=== PATIENT | female | born 1995 ===

== ENCOUNTER 2017-09-08 19:22 | Outpatient (CLI) | payer SELFPAY | END 2017-09-08 19:23 | disposition EMS.NT | LOC: EMS 19:22 | PROVIDERS: ATTEND Surgery | DX: M54.5 Low back pain (principal); W01.0XXA Fall on same level from slipping, tripping and stumbling without subsequent striking against object, initial encounter; Y92.030 Kitchen in apartment as the place of occurrence of the external cause ==